=== PATIENT | female | born 1995 | race Caucasian/White ===

== ENCOUNTER 2018-10-30 11:13 | Day surgery (SDC) | payer OTHER ==
[2018-10-26 16:51] VITALS: BMI 35.6
[2018-10-30] MEDS ORDERED: BUPIVACAINE HCL/PF 2.5 MG/ML - 30 ML VIAL IJ ONE (14:37)
[2018-10-30] MEDS ORDERED: PROPOFOL 20 ML ONE ×2 (14:49)
[2018-10-30] MEDS ORDERED: MIDAZOLAM HCL 2 MG/2 ML SINGLE DOSE VIAL ONE (14:52)
[2018-10-30] MEDS ORDERED: BUPIVACAINE HCL/PF 0.25% (2.5MG/ML) 10 ML VIAL IJ ONE (15:21)
[2018-10-30] MEDS ORDERED: ONDANSETRON 4 MG/2 ML VIAL IVPUSH ONE (15:38)
[2018-10-30] MEDS ORDERED: oxyCODONE HCL 5 MG TABLET PO PRN (15:41)
[2018-10-30] MEDS ORDERED: PROMETHAZINE HCL 25 MG/1 ML VIAL IVPUSH PRN (15:41)
[2018-10-30] MEDS ORDERED: ONDANSETRON 4 MG/2 ML VIAL IVPUSH PRN (15:41)
[2018-10-30 17:17] VITALS: TEMP 98
[2018-10-30 18:04] VITALS: BP 116/70; PULSE 84
--- NOTE | 2018-10-31 08:47 | OP ---
DATE OF OPERATION: 10/30/2018 SURGEON: Carlyn Lawrence MD CUT OUT OPERATOR: No pharmaceutical assistant. PREOPERATIVE DIAGNOSES: 1. Left knee medial and lateral meniscal tear. 2. Left knee cartilage injury. 3. Left knee synovitis. POSTOPERATIVE DIAGNOSES: 1. Left knee medial and lateral meniscal tear. 2. Left knee cartilage injury. 3. Left knee synovitis. PROCEDURE: 1. Left knee arthroscopy with partial meniscectomy medial and lateral meniscus, CPT code 41231. 2. Left knee arthroscopy with chondroplasty, CPT code 2977. 3. Left knee arthroscopy with synovectomy, CPT code 2975. FINDINGS: 1. Medial meniscus body undersurface tear, minor. 2. Lateral meniscus posterior horn tear, minor. 3. Anterior horn medial and lateral meniscal tears with transmetatarsal ligament tearing with tension across the anterior portions. 4. Synovitis patellofemoral and anterior portions with large medial plica. 5. ACL and PCL intact. 6. cartilage injury lateral joint. 7. Minor anterior grade 2 cartilage site of plica adhesion anteriorly. PROCEDURE: Informed consent was obtained. The patient came to the operating room, where the lower extremity was prepped and draped in a sterile fashion. A tourniquet was placed on the upper thigh, but not inflated. Using standard arthroscopic technique, a lateral incision and portal was made to allow for introduction of the camera into the suprapatellar bursa. This was then taken to the medial joint line, where under direct visualization, a medial incision and portal was made. Excessive synovium noted in the medial, lateral and patellofemoral and notch area was removed by an upbiter, shaver and Bovie cautery. This was found to bring in inflammatory tissue into the joint surface, a source of pain and dysfunction. Probing of the medial and lateral meniscus found tears, as described in the findings. These were removed with the upbiter and shaver and taken back to a stable rim. Grade 2 to 3 degenerative changes were treated with a chondroplasty, removing all flaking surfaces with low-setting Bovie along the periphery to prevent further flaking. Grade 4 changes, as noted, were treated with an abrasoplasty, creating a bleeding surface at the bone/cartilage interface. Aggressive debridement with shaver/luisito created bleeding surface. Micro fracture also done when indicated in findings. The patient had a transmetatarsal ligament with extension to the anterior horn and tearing on both sides. This was released, but the secondary ligament was intact underneath, and there was no instability. The torn portion of the anterior horns were debrided. All areas of the knee were once again reexamined. The knee was then drained and a single suture was placed in all portals. A sterile dressing was placed and the patient was transferred to the recovery room without complication. The PA listed above was present and assisted at surgery. Their presence was absolutely medically necessary for the completion of the procedure. They helped hold the arthroscopy, pass instruments (and implants when indicated) and the procedure could not have been completed without their assistance. CARLYN LAWRENCE M.D. [id number]
--- NOTE | 2018-11-03 17:08 | PATH ---
Surgical Pathology Report Patient Name: ORA LINARES Med. Rec. #: [id number] /Age/Gender: 1995 (Age: 23) / F Account: [id number] Location: [facility] Taken: 10/30/2018 Received: 10/30/2018 Reported: 11/03/2018 Physicians: Garrett Kitchen M.D. Specimen(s) Received LEFT KNEE SHAVINGS Clinical History Left knee internal derangement Final Diagnosis LEFT KNEE SHAVINGS: FRAGMENTS OF FIBROSYNOVIAL TISSUE WITH FIBROSIS. Electronically Signed Ever Love M.D. Gross Description Received in formalin, labeled "left knee shavings," is a 3.0 x 2.5 x 0.3 cm. aggregate of french-yellow soft tissue fragments. A marketing sales representative portion is submitted in one cassette. /11/02/2018 saudi11/02/2018
== END 2018-10-30 18:04 | disposition home or self-care (01) ==
LOC: FASU 11:13
PROVIDERS: ATTEND Orthopaedic Surgery
PROC: 0SBD4ZZ Excision of Left Knee Joint, Percutaneous Endoscopic Approach (ICD-10-PCS; 2018-10-30)
PROC: 0SBD4ZZ Excision of Left Knee Joint, Percutaneous Endoscopic Approach (ICD-10-PCS; 2018-10-30)
PROC: 0SBD4ZZ Excision of Left Knee Joint, Percutaneous Endoscopic Approach (ICD-10-PCS; principal; 2018-10-30 15:09)
DX: S83.242A Other tear of medial meniscus, current injury, left knee, initial encounter (principal); S83.282A Other tear of lateral meniscus, current injury, left knee, initial encounter; S83.8X2A Sprain of other specified parts of left knee, initial encounter; M65.862 Other synovitis and tenosynovitis, left lower leg; X58.XXXA Exposure to other specified factors, initial encounter; Y93.9 Activity, unspecified; Y92.9 Unspecified place or not applicable
CPT/HCPCS: 84703; 88304-TC; 94760